=== PATIENT | male | born 1960 | race Two or more races ===

== ENCOUNTER 2024-10-19 17:26 | Emergency (ER) | payer OTHER ==
[~2024-10-19] VITALS: Ht 175.3 cm; Wt 68.0 kg
[2024-10-19] MEDS ORDERED: ONDANSETRON ODT 4 MG TAB.RAPDIS ONE (20:31)
[2024-10-19] MEDS: ONDANSETRON ODT 4 MG TAB.RAPDIS SL ONE (20:32)
[2024-10-19 20:42] LABS: BASOPHILS % (AUTO) 0.2 % (0.0-2.0); EOSINOPHILS % (AUTO) 0.3 % (0.0-7.0); HEMATOCRIT 39.6 % (36.7-47.1); HEMOGLOBIN 13.1 g/dL (12.5-16.3); LYMPHOCYTES # (AUTO) 0.8 K/uL (0.8-4.8); LYMPHOCYTES % (AUTO) 12.7 % (20.5-51.5); MEAN CORPUSCULAR HGB CONC 33 g/dL (32.5-36.3); MEAN CORPUSCULAR VOLUME 93.8 fL (73.0-96.2); MONOCYTES # (AUTO) 0.6 K/uL (0.1-1.30); MONOCYTES % (AUTO) 8.4 % (0.0-11.0); NEUTROPHILS # (AUTO) 5.2 K/uL (1.8-8.9); NEUTROPHILS % (AUTO) 78.4 % (38.5-71.5); PLATELET COUNT (AUTO) 266 K/uL (152-348); RED BLOOD CELL COUNT(AUTO) 4.22 MIL/uL (4.06-5.63); RED CELL DISTRIBUTION WIDTH 14.8 % (12.1-16.2); WHITE BLOOD COUNT (AUTO) 6.6 K/uL (3.6-10.2)
[2024-10-19 20:49] LABS: DIFFERENTIAL COMMENT 1
[2024-10-19 20:54] LABS: CALCIUM 8.7 mg/dL (8.5-10.1); CREATININE 0.9 mg/dL (0.6-1.3); POTASSIUM 3.2 mmol/L (3.5-5.1)
[2024-10-19] MEDS: IV NORMAL SALINE 1000 ML BAG IV ONE (20:54)
[2024-10-19] MEDS ORDERED: LOPERAMIDE HCL 2 MG CAPSULE ONE (20:58)
[2024-10-19] MEDS ORDERED: DICYCLOMINE HCL LIQ 10 MG/5 ML UDC ONE (20:58)
[2024-10-19] MEDS: DICYCLOMINE HCL 20 MG/2 ML AMPUL IM SCH (20:59)
[2024-10-19] MEDS: ONDANSETRON 4 MG/2 ML VIAL IV ONE (20:59)
[2024-10-19 21:00] LABS: ALBUMIN 3.5 g/dL (3.4-5.0); BILIRUBIN,DIRECT 0.3 mg/dL (0.0-0.2); BILIRUBIN,TOTAL 1.4 mg/dL (0.2-1.0); TOTAL PROTEIN, SERUM 7.6 g/dL (6.4-8.2)
[2024-10-19] MEDS: LOPERAMIDE HCL 2 MG CAPSULE PO ONE (21:01)
[2024-10-19] MEDS: DICYCLOMINE HCL LIQ 10 MG/5 ML UDC PO ONE (21:01)
[2024-10-19] MEDS ORDERED: ONDA4TAB11 PO (22:21)
[2024-10-19] MEDS ORDERED: LOPE2CAP40 PO (22:21)
[2024-10-19] MEDS ORDERED: DICY20TA11 PO (22:21)
[2024-10-19] MEDS ORDERED: HYDR453.3 TP (22:36)
[2024-10-19 23:55] VITALS: BP 106/73; TEMP 97.8; O2SAT 97
== END 2024-10-20 00:03 ==
LOC: ER 17:26
DX: R11.2 Nausea with vomiting, unspecified (principal); R19.7 Diarrhea, unspecified; K21.9 Gastro-esophageal reflux disease without esophagitis
CPT/HCPCS: 99284; 96360; 80076; 80048; 83690; 85025; 36415; J7040; A4606; A4663; Q0162

== ENCOUNTER 2025-03-09 12:16 | Emergency (ER) | payer OTHER ==
[~2025-03-09] VITALS: Ht 175.3 cm; Wt 72.6 kg
[~2025-03-09 12:16] MED LIST: DICY20TA11 PO; HYDR453.3 TP; LOPE2CAP40 PO; ONDA4TAB11 PO
[2025-03-09 12:22] VITALS: O2SAT 98
[2025-03-09] MEDS ORDERED: ACET-2605 PO (12:32)
[2025-03-09] MEDS ORDERED: CHOL2000 PO (12:32)
[2025-03-09] MEDS ORDERED: NAPR-1009 PO (12:32)
[2025-03-09] MEDS ORDERED: QUET25TA PO (12:32)
[2025-03-09] MEDS ORDERED: MULT-594 PO (12:32)
[2025-03-09] MEDS ORDERED: DICLOFENAC 1% GEL TOP (12:32)
[2025-03-09] MEDS ORDERED: HYDR-894 PO (12:32)
[2025-03-09] MEDS ORDERED: PANT40TA49 PO (12:32)
[2025-03-09] MEDS ORDERED: FURO20TA4 PO (12:32)
[2025-03-09] MEDS ORDERED: LOSA100T31 PO (12:32)
[2025-03-09] MEDS ORDERED: GABA-532 PO (12:32)
[2025-03-09] MEDS ORDERED: LORA10TA61 PO (12:32)
[2025-03-09] MEDS ORDERED: FAMO20TA8 PO (12:32)
== END 2025-03-09 17:25 ==
LOC: ER 12:19
DX: M25.551 Pain in right hip (principal); K21.9 Gastro-esophageal reflux disease without esophagitis; Z79.899 Other long term (current) drug therapy; Z87.39 Personal history of other diseases of the musculoskeletal system and connective tissue
CPT/HCPCS: 73502; A4606; A4663